=== PATIENT | male | born 1965 | race Caucasian/White ===

== ENCOUNTER 2021-06-23 04:36 | Inpatient (IN) | payer OTHER, SELFPAY ==
[2021-06-23] VITALS (108 sets, daily range): BP systolic 101–175; BP diastolic 59–116; PULSE 55–99; RESP 5–21; TEMP 35.7–36.6; O2SAT 66–98; BMI 32.5; BMI 35.0
--- NOTE | 2021-06-23 04:44 | ECG_ITS ---
[facility] Test Date: 2021-06-23 Pat Name: Marcel Guevara Department: Room: 105 Gender: Male Roll Examiner: : 1965 Requested By: Len Hardy Order Number: [id number] Meghna MD: JÚNIOR GUDINO Measurements Intervals [place] Rate: 64 P: 3 MS: 201 QRS: -34 QRSD: 149 T: -6 QT: 458 QTc: 475 Interpretive Statements SINUS RHYTHM LEFT AXIS DEVIATION [QRS AXIS < -30] RIGHT BUNDLE BRANCH BLOCK [120+ ms QRS DURATION, UPRIGHT V1, 40+ ms S IN I/aVL/V4/V5/V6] Compared to ECG 01/23/2018 18:21:37 Sinus bradycardia no longer present Electronically Signed On 06-23-2021 21:04:30 CDT by JÚNIOR GUDINO [id number]
--- NOTE | 2021-06-23 04:44 | XRR_ITS ---
PROCEDURE INFORMATION: Exam: XR Chest Exam date and time: 06/23/2021 4:44 AM Age: 56 years old Clinical indication: Shortness of breath; Angina pectoris; Prior surgery; Surgery date: Post-operative (0-2 days); Patient HX: S/P cath this am, SOB chest pain today; Additional info: Cp TECHNIQUE: Imaging protocol: XR of the chest. Views: 1 view. COMPARISON: CR Chest 1 [place] [id number] 01/23/2018 12:26 PM FINDINGS: Lungs: No focal consolidation. Pleural spaces: Unremarkable. No pleural effusion. No pneumothorax. Heart/Mediastinum: Unremarkable. No cardiomegaly. Bones/joints: Unremarkable. XR/XR chest 1V portable [id number] IMPRESSION: No focal consolidation. Question subtle interstitial prominence. Consider CT if indicated.
--- NOTE | 2021-06-23 04:46 | XACV_ITS ---
Exam Room: [facility] Ht: 191 cm Wt: 118 kg BSA: 2.53 m2 Gender: Male : 1965 Any Known Allergies: No known allergies Exam Priority: Routine Procedure(s): Procedure Description: Diagnostic procedure Procedure Description: PCI procedure Procedure Description: Drug Eluting Coronary Stent Procedure Description: Miscellaneous Procedure Description: ACT Procedure Description: Coronary Angiography Diagnostic Cath Status: Emergency Diagnostic Findings * Left Main has no disease. * Circumflex has no disease. * Proximal Left Anterior Descending to Mid Left Anterior Descending: total occlusion, CHERELLE: 0 flow. * Mid Right Coronary Artery: moderate 50% stenosis, CHERELLE: 3 flow. * Coronary angiography shows right dominance. PCI Status: Urgent PCI Indication: STEMI - Immediate PCI for STEMI Interventional Findings * Proximal Left Anterior Descending to Mid Left Anterior Descendin% stenosis treated with a AB TREK 2.50X12 RX BALLOON, MDKeanu Gray LANCE 3.0X26 MARIA ANTONIA, and MDT HIRA EUPHORA RX 3.20G00OV BALLOON. 0% residual stenosis, CHERELLE: 3 flow. Conclusions 1. There is total occlusion coronary artery disease with two vessel disease. 2. Proximal Left Anterior Descending to Mid Left Anterior Descending was treated with a Balloon, Drug Eluting Stent, and Balloon. Recommendations * 1-Return to inpatient for close monitoring and routine cath care 2-Risk factor modification for secondary prevention 3-Statin and aspirin 81 mg life--long, if tolerated 4-Patient was pre-loaded with 600 mg of Plavix, continue Plavix 75mg p.o. daily for at least one year. We will assess at the end of one year again to continue if further or not 5-Continue optimal medical management 6-Follow up with Dr. Oconnor in four weeks and your primary care in 10 days. Diagnostic RX Recommendation: PCI w/o planned CABG Pressures Phase:Rest AO : 101 / 50 ( 74 ) @ 1:12:20 AM 131 / 84 ( 108 ) @ 1:12:20 AM Clinical Evaluation EBL: 5mL-10mL Procedural Details Pre-Procedure Time Out. Identified patient by full name and date of as verbalized by the patient/guarantor. Does the consent match the physician's order: Yes. Accurate & Complete Informed Consent: Yes. Inpatient/Outpatient History & Physical on Chart: N/A Emergent. If H&P is completed, is and addenduem needed: No; If yes, is the addendum complete: N/A. Visualize and Verify Site with Patient/Guarantor: N/A. Relevant Radiology Images available: N/A Emergent. Pre-op teaching completed and patient verbalized understanding. The risks, benefits, and alternatives of sedation and/or procedure were discussed by physician. The patient agrees to continue. Procedure started. [facility] Clinical Fraility Score: 3: Managing Well. Carding Supervisor Indications: Other; STEMI. Chest Pain Symptom Assessment: Typical Angina Symptoms. Cardiovascular Instability: No. Correct patient, site and procedure confirmed by cath team. Current diagnosis: STEMI. PERRLA. Strong, equal hand environmental engineering manager bilaterally. Lungs clear x 5 lobes. IV Site on Arrival: 18 gauge in the left wrist. IV Fluids: 0.9% NaCl at KVO. 100 mL infused prior to cook house laborer. Pre Procedural Pulses: bilateral radial was 3+. Pre Procedural Pulses: bilateral posterior tibial was 3+. Pre Procedural Pulses: bilateral dorsalis pedis was 3+. Oxygen started at 3liters/min via nasal canula. right groin was prepped with chloroprep then draped in the usual sterile fashion. right radial was prepped with chloroprep then draped in the usual sterile fashion. Physician notified. Baseline sample Acquired. HR: 114 BPM. Baseline sample Acquired. HR: 101 BPM. Physician arrived. Physician scrubbed in. Equipment: 5F - Femoral. Equipment: 6F - Radial. Equipment: 6F - Femoral. Equipment: 5F - Radial. Immediate Pre-Procedure Time Out. Correct Patient: Yes; Correct Procedure: Yes; Correct Site: Yes; Correct Patient Position: Yes; Correct Supplies: Yes; Dried Flammable Prep: Yes; Blood Products Available: N/A;. Lidocaine 1% infiltrated to the right radial. Arterial access obtained. A Inherited Healthum[employer] 5 Fr Abelino Radial Catheter, 110cm was advanced over the wire and used for Right coronary angiography. Multiple views taken of right coronary artery. Catheter removed over the exchange wire. Inventory is CRD 6 FR XB 3.5 GUIDE. Heparin 4,000 units and plavix 300 mg PO was given in ER prior to cook house laborer arrival. 6 welsh XB 3.5 guide catheter was inserted over the wire. Current Diagnosis : STEMI. Inventory is Cingulate Therapeuticsgar XT .014 190cm Str. Guidewire. Guide seated in the LCS. Multiple views taken of left coronary artery. [place] guidewire was advanced through the guide catheter to lesion in the prox LAD. Guidewire advanced across lesion. Cardiac Cath Pack. ACIST Manifold Kit Model BT 2000. Heparinized Saline (2 units/mL), 1000 mL bag. Inflation number : 1 A AB TREK 2.50X12 RX BALLOON was prepped and advanced across the Prox LAD , then inflated to 14 ROQUE for 0:11 seconds. Inflation number: 2 The AB TREK 2.50X12 RX BALLOON was reinflated across the Prox LAD, to 14 ROQUE for 0:09 seconds. Inflation number: 3 The AB TREK 2.50X12 RX BALLOON was reinflated across the Prox LAD, to 14 ROQUE for 0:09 seconds. Angiography performed. Balloon out over the wire. Inflation Number : 4 A DO Gray LANCE 3.0X26 MARIA ANTONIA -Lot Number# [id number] was prepped and advanced across the Prox LAD. The stent was deployed at 16 ROQUE for 0:32 seconds. EXP 11-12-2022. Angiography performed. Stent balloon out over wire. Inflation number : 5 A MDT HIRA EUPHORA RX 3.35T87EZ BALLOON was prepped and advanced across the Prox LAD , then inflated to 16 ROQUE for 0:19 seconds. Inflation number: 6 The MDT HIRA EUPHORA RX 3.83L80HP BALLOON was reinflated across the Prox LAD, to 16 ROQUE for 0:16 seconds. Inflation number: 7 The MDT NC EUPHORA RX 3.15W95VC BALLOON was reinflated across the Prox LAD, to 10 ROQUE for 0:11 seconds. Inflation number: 8 The MDT NC EUPHORA RX 3.38S21DV BALLOON was reinflated across the Prox LAD, to 10 ROQUE for 0:08 seconds. Inflation number: 9 The MDT NC EUPHORA RX 3.56W83OG BALLOON was reinflated across the Prox LAD, to 10 ROQUE for 0:07 seconds. Angiography performed. Inflation number: 10 The MDT NC EUPHORA RX 3.54C02OW BALLOON was reinflated across the Prox LAD, to 12 ROQUE for 0:09 seconds. Angiography performed. Balloon and wire out. Angiography performed. ACT drawn. Results 216 seconds. Therapeutic limits - pre-heparin administration 90-150 seconds and monitoring heparin during a vascular procedure >250 seconds. Physician review of films. Physician scrubbed out. A TR Band was successful obtaining hemostatsis at the Right Radial artery insertion site. TR band placed. Hemostasis obtained. Post Procedure: Pulses reassessed and unchanged. PERRLA. Strong, equal hand environmental engineering manager bilaterally. No VTE prophylaxis required. Medication's Wasted: Lidocaine 1% = 16 ml. Medication's Wasted: Heparin = 2000 units. Medication's Wasted: Fentanyl = 25 mcg. Medication's Wasted: Versed = 1 mg. Medication's Wasted: Nitro = 50 mg. Total IV fluids: 100 mL. Fluoro: 12:03. Contrast type used: Omnipaque 300 mgI/mL, 500 mL bottle. Vital chart was stopped. [id number]. PCI Indication: STEMI. Post-op diagnosis: STEMI; LAD OCCLUSION. Complications: NONE. Estimated blood loss: 5mL-10mL. Procedure completed. Patient transferred by wheelchair to 1st floor. Access Site Site: Right Radial artery Sheath Size: 6 Fr Hemostasis Method: TR Band Hemostasis Success: Successful Procedure Medications Start: 5:12 AM Stop: 5:12 AM Medication: Versed 1 mg and Fentanyl 25 mcg Amount: 1 Route: I.V. Start: 5:14 AM Stop: 5:14 AM Medication: Fentanyl Amount: 25 mcg Route: I.V. Start: 5:15 AM Stop: 5:15 AM Medication: Versed Amount: 1 mg Route: I.V. Start: 5:17 AM Stop: 5:17 AM Medication: Plavix Amount: 300 mg Route: P.O. Start: 5:17 AM Stop: 5:17 AM Medication: Fentanyl Amount: 50 mcg Route: I.V. Start: 5:24 AM Stop: 5:24 AM Medication: Versed Amount: 1 mg Route: I.V. Start: 5:31 AM Stop: 5:31 AM Medication: Fentanyl Amount: 50 mcg Route: I.V. Start: 5:32 AM Stop: 5:32 AM Medication: Heparin Amount: 7000 units Route: I.V. Start: 5:37 AM Stop: 5:37 AM Medication: Aggrastat 12.5 mg/250 mL Amount: 60 ml Route: I.V. bolus Start: 5:37 AM Stop: 5:37 AM Medication: Aggrastat 12.5 mg/250 mL Amount: 21.6 ml/hr Route: I.V. drip Start: 5:42 AM Stop: 5:42 AM Medication: Fentanyl Amount: 25 mcg Route: I.V. Start: 5:56 AM Stop: 5:56 AM Medication: Heparin Amount: 2000 units Route: I.V. I, the attending physician, have reviewed and verified all procedure medications. Yes, all medications given per verbal order History/Risk Factors Hypertension: Yes Dyslipidemia: Yes Peripheral Arterial Disease (PAD): No Myocardial Infarction (SD): Yes Obesity: Yes Renal Disease: No Tobacco Use: Current/Recent(w/in 1 year) Prior Interventions PCI: Yes CABG: No Valve Surgery: No Report Signatures Finalized by Paola Oconnor MD on 07/06/2021 08:12 PM
[2021-06-23] MEDS: clopidogrel 300 mg Tablet PO (04:51)
[2021-06-23] MEDS: heparin 5,000 unit/mL INJ 1 mL 4000 UNIT IVP (04:56)
[2021-06-23] MEDS: sodium chloride 0.9% 1,000 ML 999 ML IV (04:58)
[2021-06-23 05:08] LABS: Basophils # 0.1 10^3/uL (0.0-0.1); Basophils % 0.6 %; Eosinophils # 0.6 10^3/uL (0.0-0.8); Eosinophils % 3.6 %; Hematocrit 44.9 % (42.0-52.0); Hemoglobin 14.7 g/dL (11.7-16.6); Lymphocytes # 5.1 10^3/uL (0.8-4.8); Mean Corpuscular HGB Conc 32.7 g/dL (30.0-36.0); Mean Corpuscular Hemoglobin 29.1 pg (28.0-34.0); Mean Corpuscular Volume 88.7 fl (80-94); Monocytes % 6.1 %; Neutrophils # 9.03 10^3/uL (1.8-7.7); Neutrophils % 57.3 %; Nucleated Red Blood Cells % 0 %; Platelet Count 239 10^3/cmm (130-400); Red Blood Count 5.06 10^6/uL (4.1-5.3); Red Cell Distribution Width 14.7 % (12.1-15.1); White Blood Count 15.8 10^3/uL (4.0-10.0)
--- NOTE | 2021-06-23 05:08 | PM.HP ---
Providers/Chief Complaint Primary Care Provider: Marcel Fuentes MD Chief Complaint: STEMI ALERT History of Present Illness Marcel Guevara is a 56 year old male past medical history significant of hypertension hyperlipidemia obesity, continuous tobacco abuse who does not follow with strategic intelligence officer started having chest pain early this morning almost 45 minutes ago called 911, on the basis of EMS strip with mild ST elevation in the anterolateral/high lateral leads I aVL ST elevation NM was alerted. Patient has underlying right bundle branch block therefore it is difficult to interpret, however this EKG is changed from the prior ones, Since patient continues to have chest pain with mild ST elevation in the anterolateral leads we will take him to the Baling Machine Operator. Patient has been explained all risk benefit and alternative for the procedure. He understand the risk for major minor bleed, urgent emergent bypass and vascular surgery, stroke, , arrhythmia and infection. He understand the risk for contrast-induced nephropathy, radial artery or femoral artery occlusion or injury. He would like to proceed with it. He was loaded with 600 mg of Plavix. Medications/Allergies Home Medications Medication Instructions Recorded Confirmed Last Taken Type amlodipine 10 mg PO DAILY 06/23/21 06/23/21 06/22/21 History aspirin 325 mg PO ONCE MDD see pharmacy 06/23/21 06/23/21 06/23/21 History comment 325 mg atorvastatin 20 mg PO DAILY 06/23/21 06/23/21 06/22/21 History lisinopril 40 mg PO DAILY 06/23/21 06/23/21 06/22/21 History metoprolol succinate 50 mg PO DAILY 06/23/21 06/23/21 06/22/21 History sildenafil (pulm.hypertension) 40 - 60 mg PO .PRIOR TO SEXUAL ACT 06/23/21 06/23/21 Unknown History PRN Allergies Allergy/AdvReac Type Severity Reaction Status Date / Time No Known Allergies Allergy Verified 06/23/21 05:17 PFSH Acute PFSH: Medical History (Updated 06/23/21 @ 20:11 by Paola Oconnor MD) Essential hypertension Vitals/I&O/Wt Last Vital Signs Pulse 63 06/23/21 04:38 Resp 13 06/23/21 04:38 BP 101/59 06/23/21 04:38 Pulse Ox 89 L 06/23/21 04:38 Weight last 48 hrs Weight 260 lb Physical Exam Narrative: EXAM NARRATIVE: GENERAL: Patient is alert, awake and oriented x3. Patient is in severe chest pain and discomfort NECK: No jugular vein distension. HEENT: No cyanosis. No icterus. No pallor. HEART: Regular S1 and S2. No murmur, rub or gallop. LUNGS: Clear to auscultate bilaterally. ABDOMEN: Soft, nontender and nondistended. Positive bowel sounds. No guarding, rebound or tenderness. CENTRAL NERVOUS SYSTEM: Grossly nonfocal. EXTREMITIES: Lower extremities without edema bilaterally. Data : 06/23/21 04:55 06/23/21 04:55 A&P Assessment and plan (1) ST elevation NM (STEMI): Patient's anterolateral and high lateral leads are suspicious for ST elevation NM we will proceed with urgent angiogram and PCI if indicated. Further plan will be advised as per progress of the patient. Status: Acute (2) Essential hypertension: Well-controlled. Continue current regimen. Status: Acute Attestations Medical Necessity Statement*: Patient will be admitted as inpatient for ST elevation NM. I am expecting his stay to cross more than 2 midnights. Coding Level of Care Code New Pt Acute Test Case Developer for g Fwd Patient Type New History Detailed Exam Detailed Medical Decision Making Moderate Complexity Diagnoses ST elevation NM (STEMI) I21.3 Essential hypertension I10
--- NOTE | 2021-06-23 05:14 | W.ED.CHESTPA ---
HPI - Chest Pain General: Chief Complaint: Chest Pain Stated Complaint: STEMI ALERT Time Seen by Provider: 06/23/21 04:43 Source: patient and EMS Mode of arrival: EMS Limitations: no limitations History of Present Illness: HPI narrative: 56-year-old male that states he started having chest pain roughly 1 hour before arrival. A STEMI alert was called by EMS 30 minutes out [place] due to elevation in V2 V3. Patient states that he was diaphoretic pain felt like he had when he had a previous OR. Patient was given nitro and morphine with improvement of his pain. Patient received aspirin as well. He denies any vomiting or diarrhea. Associated symptoms: Deny abdominal pain, dyspnea, fever(s), nausea or vomiting Review of Systems Const: Denies: fever(s), chills, body aches or change in appetite Eyes: Denies: blurry vision or eye discomfort ENMT: Denies: throat pain or dental pain Card: Reports: chest pain Resp: Denies: dyspnea GI: Denies: abdominal pain, nausea, vomiting or diarrhea : Denies: dysuria Musc: Denies: neck pain or back pain Skin/Breast: Denies: rash Neuro: Denies: headache(s) Psych: Denies: depression Sridhar/Lymph: Denies: easy bruising All/Imm: Denies: urticaria Physical Exam Const: COMMON NORMALS: patient oriented x3 and healthy appearing GENERAL APPEARANCE: ill appearing NUTRITIONAL APPEARANCE: overweight HENMT: COMMON NORMALS: normocephalic and atraumatic HEAD & SCALP: normocephalic and atraumatic Eye: COMMON NORMALS: Equal, round and reactive pupils present and EOMs intact bilaterally PUPIL: Yes Equal, round and reactive pupils present Neck/C-Spine: COMMON NORMALS: full ROM and supple Chest: COMMONS NORMALS: normal inspection of the chest and normal palpation of entire chest wall Resp: COMMON NORMALS: normal respiratory effort, No retractions, No use of accessory muscles and clear to auscultation bilaterally AUSCULTATION: clear to auscultation bilaterally Cardio: COMMON NORMALS: regular rate, regular rhythm and No murmurs present (Cardio) RATE: regular rate RHYTHM: regular rhythm GI: COMMON NORMALS: Normal to inspection, nondistended, normoactive bowel sounds present, Soft to palpation, non-tender and no masses PALPATION: Yes Soft to palpation Extremity: COMMON NORMALS: normal to inspection and full ROM Neuro: COMMON NORMALS: patient oriented x3, moves all extremities and no focal motor deficits Psych: COMMON NORMALS: mental status grossly normal, Normal thought process present and cooperative THOUGHT PROCESS: Normal thought process present Skin: COMMON NORMALS: no rashes or lesions noted and no wounds GENERAL SKIN EXAM: no rashes or lesions noted Course Vital Signs: Vital signs: Vital Signs Temperature 97.9 F 06/23/21 04:45 Pulse Rate 62 06/23/21 04:45 Respiratory Rate 20 H 06/23/21 04:45 Blood Pressure 101/59 06/23/21 04:45 Pulse Oximetry 88 L 06/23/21 04:45 MDM - Chest Pain MDM Narrative: Medical decision making narrative: Presents here with chest pain and a likely STEMI. He does have some elevation in V2 Dr. Noel's came and seen the patient will take patient to the Offset Plate Preparation Supervisor at this time. Patient's pain has improved with nitro and morphine in route by EMS. He is given aspirin. Lab Data: Labs: Lab Results 06/23/21 Range/Units 04:55 WBC 15.8 H (4.0-10.0) 10^3/ uL RBC 5.06 (4.1-5.3) 10^6/u L Hgb 14.7 (11.7-16.6) g/dL Hct 44.9 (42.0-52.0) % MCV 88.7 (80-94) fl MCH 29.1 (28.0-34.0) pg MCHC 32.7 (30.0-36.0) g/dL RDW 14.7 (12.1-15.1) % Plt Count 239 (130-400) 10^3/c mm MPV 10.0 (7.4-10.4) fL Neut % (Auto) 57.3 % Lymph % (Auto) 32.0 % [place] % (Auto) 6.1 % Eos % (Auto) 3.6 % Baso % (Auto) 0.6 % Neut # (Auto) 9.03 H (1.8-7.7) 10^3/u L Lymph # (Auto) 5.1 H (0.8-4.8) 10^3/u L [place] # (Auto) 1.0 H (0.2-0.9) 10^3/u L Eos # (Auto) 0.6 (0.0-0.8) 10^3/u L Baso # (Auto) 0.1 (0.0-0.1) 10^3/u L Nucleated RBC % (a uto) 0 % Nucleated RBCs # 0.0 /100WBC Discharge Plan Discharge Patient Disposition: Admitted As Inpatient Clinical Impression: ST elevation OR (STEMI) Referrals: Marcel Fuentes MD [Primary Care Provider] - Coding Level of Care Code ED Rn Review for Kristyn Guillen
[2021-06-23 05:23] LABS: Alanine Aminotransferase 16 U/L (0-41); Albumin Level 3.6 g/dL (3.5-5.2); Alkaline Phosphatase 63 IU/L (40-130); Blood Urea Nitrogen 11 mg/dL (6-20); Calcium 8.8 mg/dL (8.5-10.5); Carbon Dioxide 23 mmol/L (22-29); Chloride 99 mmol/L (98-107); Globulin 2.6 g/dL (1.3-4.6); Glucose 194 mg/dL (65-115); Osmolality Calculated 287 mOsm/kg (285-295); Sodium 136 mmol/L (136-145); Total Bilirubin 0.3 mg/dL (0.15-1.2); Total Protein 6.2 g/dL (6.6-8.7); Troponin(5th) Baseline 20 ng/L (0-15)
[2021-06-23 05:33] LABS: Anion Gap 18.7 (5-19); Aspartate Amino Transferase 19 U/L (0-40); Potassium 4.7 mmol/L (3.5-5.1)
--- NOTE | 2021-06-23 06:19 | PC.NURSE ---
Patient asked me to call , Erinn to update her. She did not answer phone. .
--- NOTE | 2021-06-23 07:16 | PC.NURSE ---
Around 0600, patient arrived to the floor from slabbing machine operator. Patient is alert and oriented, but drowsy. Patient is on 2 L NC. VSS. TR band to right wrist and aggrastat drip running per order. Patient has been oriented to his room and has call light within reach.
--- NOTE | 2021-06-23 08:30 | PC.CHAP ---
Pastoral Care Encounter/Spiritual Assessment Type of Contact [] Declined geometry teacher visit [] Patient/Family/Request visit [] Outpatient visit [] Follow-up visit [] Physician referral [] Code/Alert [x] Routine visit [] Staff referral [] Actively dying [] Patient sleeping [] Family support [] [] Out of room [] Palliative care [] [] Receiving care in room [] Pre-surgical visit [] Trauma [] Long length of stay [] ICU visit [] Other: Relational/Emotional Strength [] Patient feels connected with others/family/visitors/staff [] Distress [] Loneliness/isolation [] Abandonment Spirituality of Patient [] Person of April [] Attends Restorationist of their April [] Believes in Prayer [] Reads Bible or Sikhism materials [] There are Spiritual issues to be addressed Resident Programs Assistant Interventions [x] Prayer [] Active listening [] Non-anxious presence [] Spiritual/emotional support [] Crisis/trauma care [] Spiritual counseling [] Bereavement support [] Provided bereavement packet [] Provided Bible/devotional materials [] Provided toy/stuffed animal, coloring book to patient or family member [] Provided Communion [] Anointing/[place] [] Salvation [x] Completed spiritual assessment [] Other: Impact on Illness or Injury [] Angry [] Fearful [] Anxious [] Often cries [] Exhaustion [] Unable to work [] Unable to attend rastafarian [] Unable to walk/stand [] Unable to read [] Unable to drive [] Unable to eat/drink [] Unable to sleep [] Unable to be with family [] Patient intubated [] Other: Summary Time spent with patient
--- NOTE | 2021-06-23 10:36 | ECG_ITS ---
[facility] Test Date: 2021-06-23 Pat Name: Marcel Guevara Department: Room: 105 Gender: Male Family Program Specialist: : 1965 Requested By: Paola Oconnor Order Number: [id number] Reading MD: PAOLA OCONNOR Measurements Intervals [place] Rate: 56 P: -8 [place]: 199 QRS: -22 QRSD: 150 T: 1 QT: 446 QTc: 431 Interpretive Statements SINUS BRADYCARDIA BORDERLINE LEFT AXIS DEVIATION [QRS AXIS < -20] RIGHT BUNDLE BRANCH BLOCK [120+ ms QRS DURATION, UPRIGHT V1, 40+ ms S IN I/aVL/V4/V5/V6] Compared to ECG 06/23/2021 04:40:43 Sinus rhythm no longer present Electronically Signed On 06-23-2021 21:04:09 CDT by PAOLA OCONNOR [id number]
--- NOTE | 2021-06-23 12:30 | PC.NURSE ---
TR Band removed. no hematoma, swelling or bleeding noted at site. Pt tolerated well. Will cont to monitor.
[2021-06-23] MEDS: atorvastatin 40 mg Tablet 80 MG PO (19:34)
--- NOTE | 2021-06-23 20:53 | PC.NURSE ---
Patient's right wrist site/dressing WNL. Distal pulses and skin WNL. Vital signs stable.
--- NOTE | 2021-06-23 21:36 | PC.NURSE ---
Dr. Harrell notified of patient's oxygen saturation dropping to 50 percent while sleeping. Patient maintained this until being awoke. Patient did this x3 when falling asleep. RT notified and assessed patient. Dr. Harrell ordered CPAP. Patient states that he does not have a history of sleep apnea and does not wear any oxygen at home.
--- NOTE | 2021-06-23 22:05 | PC.NURSE ---
Patient unable to tolerate CPAP. Patient is currently on 2 L NC with continuous pulse ox on. Oxygen saturation is currently 96 percent while awake. Will continue to monitor.
[2021-06-24] VITALS (7 sets, daily range): BP systolic 109–147; BP diastolic 66–99; PULSE 63–85; RESP 12–16; TEMP 36.6–36.8; O2SAT 93–98
[2021-06-24 04:47] LABS: Basophils # 0.1 10^3/uL (0.0-0.1); Basophils % 0.4 %; Eosinophils # 0.2 10^3/uL (0.0-0.8); Eosinophils % 1.7 %; Hematocrit 47.4 % (42.0-52.0); Hemoglobin 15.3 g/dL (11.7-16.6); Lymphocytes # 2.4 10^3/uL (0.8-4.8); Lymphocytes % 20.2 %; Mean Corpuscular HGB Conc 32.3 g/dL (30.0-36.0); Mean Corpuscular Hemoglobin 28.9 pg (28.0-34.0); Mean Corpuscular Volume 89.4 fl (80-94); Mean Platelet Volume 9.6 fL (7.4-10.4); Monocytes # 0.8 10^3/uL (0.2-0.9); Monocytes % 6.9 %; Neutrophils % 70.5 %; Nucleated Red Blood Cells % 0 %; Platelet Count 217 10^3/cmm (130-400); Red Cell Distribution Width 14.9 % (12.1-15.1); White Blood Count 11.9 10^3/uL (4.0-10.0)
[2021-06-24 04:59] LABS: Anion Gap 12.4 (5-19); Blood Urea Nitrogen 8 mg/dL (6-20); Calcium 8.5 mg/dL (8.5-10.5); Carbon Dioxide 27 mmol/L (22-29); Chloride 99 mmol/L (98-107); Glomerular Filtration Rate 138.9 mL/min (90-130); Glucose 128 mg/dL (65-115); Osmolality Calculated 278 mOsm/kg (285-295); Potassium 4.4 mmol/L (3.5-5.1); Sodium 134 mmol/L (136-145)
[2021-06-24 05:54] LABS: Troponin T (5th) Once 948 ng/L (0-15)
--- NOTE | 2021-06-24 06:08 | PC.NURSE ---
Shift Note Frequent safety and comfort rounds continue. Orders and/or nursing care completed as indicated. Patient monitored for response to intervention and treatment(s). Education provided includes post-cath activity restrictions and care. Patient and/or pharmaceutical sales representative verbalized understanding. Will continue to monitor.
--- NOTE | 2021-06-24 08:41 | PC.CHAP ---
Pastoral Care Encounter/Spiritual Assessment Type of Contact [] Declined air conditioning coil assembler visit [] Patient/Family/Request visit [] Outpatient visit [] Follow-up visit [] Physician referral [] Code/Alert [x] Routine visit [] Staff referral [] Actively dying [] Patient sleeping [] Family support [] [] Out of room [] Palliative care [] [] Receiving care in room [] Pre-surgical visit [] Trauma [] Long length of stay [] ICU visit [] Other: Relational/Emotional Strength [] Patient feels connected with others/family/visitors/staff [] Distress [] Loneliness/isolation [] Abandonment Spirituality of Patient [] Person of April [] Attends Scientology of their April [] Believes in Prayer [] Reads Bible or Moravian materials [] There are Spiritual issues to be addressed Signal Person Interventions [x] Prayer [] Active listening [] Non-anxious presence [] Spiritual/emotional support [] Crisis/trauma care [] Spiritual counseling [] Bereavement support [] Provided bereavement packet [] Provided Bible/devotional materials [] Provided toy/stuffed animal, coloring book to patient or family member [] Provided Communion [] Anointing/[place] [] Salvation [x] Completed spiritual assessment [] Other: Impact on Illness or Injury [] Angry [] Fearful [] Anxious [] Often cries [] Exhaustion [] Unable to work [] Unable to attend religion [] Unable to walk/stand [] Unable to read [] Unable to drive [] Unable to eat/drink [] Unable to sleep [] Unable to be with family [] Patient intubated [] Other: Summary Time spent with patient
[2021-06-24] MEDS: metoprolol succinate ER (24 HR) 50 mg Tablet PO (09:18)
[2021-06-24] MEDS: aspirin 81 mg EC Tablet PO (09:18)
[2021-06-24] MEDS: clopidogrel 75 mg Tablet PO (09:18)
[2021-06-24] MEDS: lisinopril 20 mg Tablet 40 MG PO (09:19)
--- NOTE | 2021-06-24 10:38 | USCV_ITS ---
Marcel Guevara Age: 56 Gender: M : 1965 Exam Date: 06/24/2021 12:02 Ordering Phys: Paola Oconnor MD ([email or web address]) Technologist: Exam Location: [facility] [place] Indication: POST CATH BP: 147 / 99 HR: 98 Rhythm: Sinus Technical Quality: Adequate MEASUREMENTS (Male / Female) Normal Values 2D ECHO LV Diastolic Diameter PLAX 5.8 cm 4.2 - 5.9 / 3.9 - 5.3 cm LV Systolic Diameter PLAX 4.0 cm IVS Diastolic Thickness 0.8 cm 0.6 - 1.0 / 0.6 - 0.9 cm IVS Systolic Thickness 1.6 cm LVPW Diastolic Thickness 1.2 cm 0.6 - 1.0 / 0.6 - 0.9 cm LVPW Systolic Thickness 1.5 cm LVOT Diameter 2.1 cm LV Ejection Fraction 2D Teich 57.7 % LV Ejection Fraction MOD 2C 58.3 % LV Ejection Fraction 2C AL 57.6 % LA Diameter 4.3 cm DOPPLER AV Peak Velocity 131.0 cm/s LVOT Peak Velocity 99.0 cm/s AV Area Cont Eq vti 3.0 cm squared AV Area Cont Eq pk 2.6 cm squared MV Area PHT 5.0 cm squared Mitral E to A Ratio 0.9 MV E' Velocity 39.5 cm/s Mitral E to MV E' Ratio 9.8 Mitral E to LV E' Lateral Ratio 8.8 Mitral E to LV E' Septal Ratio 11.2 TR Peak Velocity 127.7 cm/s TR Peak Gradient 6.5 mmHg TV Peak E Velocity 87.0 cm/s Right Atrial Pressure 3.0 mmHg Pulmonary Artery Systolic Pressu 9.5 mmHg FINDINGS Left Ventricle Normal left ventricular cavity size.normal left ventricular systolic function. Left ventricular ejection fraction is estimated at 55 %. There appeared to be septal bounce could be secondary to CAD or conduction delay or postoperative state.Grade I/IV diastolic dysfunction (abnormal relaxation filling pattern), normal to mildly elevated filling pressures. Right Ventricle The right ventricle is normal in size and function. Right Atrium The right atrium is normal in size. Left Atrium The left atrium is normal in size. Mitral Valve Moderately thickened mitral valve. No mitral valve stenosis. Mild mitral valve regurgitation. Aortic Valve Structurally normal aortic valve without significant sclerosis or stenosis. There is no aortic regurgitation. Tricuspid Valve Structurally normal tricuspid valve without significant stenosis or regurgitation. Pulmonary artery systolic pressure is normal. Pulmonic Valve Structurally normal pulmonic valve without significant stenosis. There is no pulmonic regurgitation. Pericardium Normal pericardium without effusion. Aorta Normal ascending aorta dimension. CONCLUSIONS Normal left ventricular cavity size.normal left ventricular systolic function. Left ventricular ejection fraction is estimated at 55 %. There appeared to be septal bounce could be secondary to CAD or conduction delay or postoperative state.Grade I/IV diastolic dysfunction (abnormal relaxation filling pattern), normal to mildly elevated filling pressures. 2-Moderately thickened mitral valve. No mitral valve stenosis. Mild mitral valve regurgitation. 4-There is no pericardial effusion. 5-Pulmonary artery systolic pressure is within normal limits. 6-Right atrial pressure is around 5 mm of mercury. 7-There are no prior echocardiogram studies to compare. Paola Oconnor MD (Electronically Signed) Final Date: 24 June 2021 19:24 S
[2021-06-24] MEDS: perflutren protein-a microsphr 0.22 mg/mL SDV 3 mL IV (12:10)
--- NOTE | 2021-06-24 14:01 | PM.DCS ---
Discharge Providers Date of Admission: 06/23/21 06:01 Date of Discharge: June 24, 2021 Attending Provider at Admission: Paola Oconnor MD Attending Provider at Discharge: Paola Oconnor MD Primary Care Provider: Marcel Fuentes MD Diagnoses at Discharge Discharge Diagnosis (1) ST elevation GA (STEMI): Status: Resolved (2) Essential hypertension: Reason for Visit Reason for Visit: STEMI ALERT Hospital Course Hospital Course 56-year-old male past medical history significant for hypertension hyperlipidemia chewing tobacco going on for at least 30 years presented with chest pain of 45 minutes duration he was taken immediately to [facility] due to ST elevation. Noted to have acute eluded mid LAD which was treated with balloon angioplasty and drug-eluting stent with excellent angiographic result achieved. Over next 2 days patient medicine was optimized. No complication noted. He is moving around fine without any difficulty. Labs looks good he is feeling much better. He is being discharged home left ventricle ejection fraction by echo was normal. Troponin peaked at > 900 before discharge. Physical Exam Narrative: EXAM NARRATIVE: GENERAL: Patient is alert, awake and oriented x3. NECK: No jugular vein distension. HEENT: No cyanosis. No icterus. No pallor. HEART: Regular S1 and S2. No murmur, rub or gallop. LUNGS: Clear to auscultate bilaterally. ABDOMEN: Soft, nontender and nondistended. Positive bowel sounds. No guarding, rebound or tenderness. CENTRAL NERVOUS SYSTEM: Grossly nonfocal. EXTREMITIES: Lower extremities without edema bilaterally. Discharge Data Data Completed and Pending: Completed Studies During Hospitalization Category Date Time Status XR chest 1V varun ble [id number] Urgent Exams 06/23/21 04:44 Completed Pending at discharge Category Date Time Status [employer]ER request for service Stat Exams 06/23/21 04:46 Taken CV. echo wo/w con trast [id number] Routin e Ultrasound 06/24/21 10:38 Taken Labs from last 24 hours 06/24/21 06/24/21 06/24/21 04:31 04:31 04:31 WBC 11.9 H RBC 5.30 Hgb 15.3 Hct 47.4 MCV 89.4 MCH 28.9 MCHC 32.3 RDW 14.9 Plt Count 217 MPV 9.6 Neut % (Auto) 70.5 Lymph % (Auto) 20.2 [place] % (Auto) 6.9 Eos % (Auto) 1.7 Baso % (Auto) 0.4 Neut # (Auto) 8.40 H Lymph # (Auto) 2.4 [place] # (Auto) 0.8 Eos # (Auto) 0.2 Baso # (Auto) 0.1 Nucleated RBC % (a uto) 0 Nucleated RBCs # 0.0 Sodium 134 L Potassium 4.4 Chloride 99 Carbon Dioxide 27 Anion Gap 12.4 BUN 8 Creatinine 0.6 L GFR Calculation 138.9 H Glucose 128 H Calculated Osmolal ity 278 L Calcium 8.5 Troponin T Gen 5 n g/L 948 H* Vitals: Last Vital Signs Temp 97.8 F 06/24/21 12:00 Pulse 63 06/24/21 12:00 Resp 16 06/24/21 12:00 BP 109/66 06/24/21 12:00 Pulse Ox 94 06/24/21 12:00 Discharge Plan Discharge Patient Disposition: Home Condition: Stable Prescriptions: New clopidogrel 75 mg Tablet 75 mg PO DAILY Qty: 90 RF: 4 Lasix 20 mg tablet 20 mg PO QAM Qty: 60 RF: 3 potassium chloride 20 mEq tablet extended release 10 meq PO DAILY Qty: 30 RF: 3 Continued metoprolol succinate 50 mg tablet extended release 24 hr 50 mg PO DAILY RF: 0 lisinopril 20 mg tablet 40 mg PO DAILY Qty: 30 RF: 3 Changed aspirin 325 mg Tablet 81 mg PO ONCE MDD see pharmacy comment Qty: 90 RF: 3 atorvastatin 20 mg tablet 80 mg PO DAILY Qty: 30 RF: 3 Discontinued amlodipine 10 mg tablet 10 mg PO DAILY RF: 0 sildenafil (pulm.hypertension) 20 mg tablet 40 - 60 mg PO .PRIOR TO SEXUAL ACT PRN (Reason: Erectile Dysfunction) RF: 0 Discharge Orders: Discharge Order (Routine); Ordered 06/24/21 Ordered By: Paola Oconnor Referrals: Paola Oconnor MD [Physician] - (You have a follow-up appointment with your pet trainer Dr. Oconnor on TuesdayJuly 22 at 3:45 pm. If you need to re-schedule this appointment please call them at [phone].) Chandni Will FNP [Nurse Practitioner] - (You have a follow-up appointment with Nurse Practitioner Chandni Will on July 02 at 9 am. If you need to re-schedule this appointment please call them at [phone].) Marcel Fuentes MD [Primary Care Provider] - 07/01/21 1:00 pm (Please follow-up with your primary doctor.) Discharge Diet: Cardiac Discharge Activity: Increase activity as tolerated Patient Instructions: Furosemide (By mouth), Potassium Chloride (By mouth), Clopidogrel (By mouth), Myocardial Infarction (DC), Left Heart Catheterization (DC), Coronary Angioplasty (DC), Coronary Intravascular Stent Placement (DC), Opioid Safety, Post Angiogram Home Care Instructions, Post Heart Attack Stoplight Activity Restrictions/Additional Instructions: Follow-up with Ms. Chandni Will in 7 days follow-up with Dr. Oconnor in 4 weeks. If you gain more than 3 pound in 2 conjunctive days or noticed worsening of shortness of breath or swelling of the feet please increase your Lasix dose to 40 mg once a day and potassium to 20 meq once a day. Discharge Attestations Time Spent in Discharge Care*: greater than 30 min Specific Discharge Activities: educating patient and educating and/or supporting family/caregiver Quality Metrics Clinical Quality Measures During this hospital stay, did patient experience: AMI Clinical Trial Participant: No Contraindication to aspirin (AMI): Aspirin given Contraindication to statin: Statin prescribed Coding Level of Care Code Acute [facility] note Diagnoses ST elevation GA (STEMI) I21.3 Essential hypertension I10
--- NOTE | 2021-06-24 16:45 | PC.NURSE ---
Pt discharged home IV removed no redness or swelling noted. Pts discharge instructions given along with prescriptions and follow up appointments. Pt had no c/o pain or discomfort at the time of discharge.
--- NOTE | 2021-06-25 10:46 | PC.SOCIAL ---
discharge follow up call made. patient had follow up appointments made with Chandni Will and Dr. Oconnor. Follow up appointment made with Dr. Fuentes. Patient filled all new medications and is taking as prescribed. Is aware of changed medications and discontinued meds.
== END 2021-06-24 16:43 | disposition home or self-care (01) | DRG 247 ==
LOC: ER 04:55 → CCL 05:46 → CSU 06:01
PROVIDERS: Admitting Provider Internal Medicine Cardiovascular Disease; Emergency Provider Emergency Medicine; PCP Family Medicine; Visit Provider Internal Medicine Cardiovascular Disease
PROC: 027034Z Dilation of Coronary Artery, One Artery with Drug-eluting Intraluminal Device, Percutaneous Approach (ICD-10-PCS; principal; 2021-06-23 04:30)
PROC: 027034Z Dilation of Coronary Artery, One Artery with Drug-eluting Intraluminal Device, Percutaneous Approach (ICD-10-PCS; 2021-06-23 04:30)
DX: I21.02 ST elevation (STEMI) myocardial infarction involving left anterior descending coronary artery (principal); I10 Essential (primary) hypertension; I25.118 Atherosclerotic heart disease of native coronary artery with other forms of angina pectoris; E78.5 Hyperlipidemia, unspecified; I45.10 Unspecified right bundle-branch block; Z72.0 Tobacco use
CPT/HCPCS: 36415; 71045; 80048; 80053; 84484; 85025; 85347; 93005; 93454; 96361; 96374; 99285; C1725; C1769; C1874; C1887; C1894; C8929; C9600; J1644; J2250; J3010; J3246; J3490; J7030; Q9956; Q9967

== ENCOUNTER → 2021-07-02 09:45 | Outpatient (BNVA) | payer OTHER, SELFPAY | PROVIDERS: PCP Family Medicine; Visit Provider Nurse Practitioner Family | DX: Z09 Encounter for follow-up examination after completed treatment for conditions other than malignant neoplasm (principal); I25.119 Atherosclerotic heart disease of native coronary artery with unspecified angina pectoris | CPT/HCPCS: 80048 ==

== ENCOUNTER → 2022-07-20 15:31 | Outpatient (BNVA) | payer OTHER, SELFPAY | PROVIDERS: PCP Family Medicine; Visit Provider Internal Medicine Cardiovascular Disease | DX: I10 Essential (primary) hypertension (principal); I25.119 Atherosclerotic heart disease of native coronary artery with unspecified angina pectoris | CPT/HCPCS: 80053; 80061; 83721; 85025 ==

== ENCOUNTER → 2023-08-19 12:06 | Outpatient (BNVA) | payer OTHER, SELFPAY | PROVIDERS: PCP Family Medicine; Visit Provider Internal Medicine Cardiovascular Disease | DX: E78.5 Hyperlipidemia, unspecified (principal); I10 Essential (primary) hypertension; I25.10 Atherosclerotic heart disease of native coronary artery without angina pectoris; I25.119 Atherosclerotic heart disease of native coronary artery with unspecified angina pectoris; Z72.0 Tobacco use | CPT/HCPCS: 36415; 80053; 80061; 85025 ==

== ENCOUNTER 2023-10-28 16:26 | Emergency (ER) | payer SELFPAY ==
[2023-10-28 16:36] VITALS: BP 133/88; PULSE 88; RESP 14; TEMP 36.3; O2SAT 93
[2023-10-28 16:39] LABS: Glucose Point of Care 573 mg/dL (70-110)
[2023-10-28 16:57] LABS: ABG PCO2 40.4 mmHg (35-45); Alveolar-Arterial Oxygen Gradi 3.4 mmHg (5-10); Base Excess ABG -0.1 mmol/L (-2.0-2.0); Blood Gas Operator Identificat AMH; Blood Gas Sample Site Brachial, right; Blood Gas Sample Type Arterial; Carboxyhemoglobin 5.4 %THgb (0.4-20.1); HCO3 ABG 24.8 mmol/L (22-26); HGB O2 Sat 89.8 % (95-100); Ionized Calcium Level - ABG 1.2 mmol/L (1.1-1.4); Methemoglobin 0.7 % (0.4-1.5); Oxygen Device ROOM AIR; Oxygen Saturation ABG 95.7; PO2 ABG 72.3 mmHg (80.0-100.0); PO2 FiO2 Ratio Arterial Blood 0; Potassium Level - ABG 4.3 mmol/L (3.5-5.0); Total Hemoglobin 15.7 g/dL (14-18)
[2023-10-28 18:06] LABS: Basophils # 0.1 10^3/uL (0.0-0.1); Basophils % 0.9 %; Eosinophils # 0.3 10^3/uL (0.0-0.8); Eosinophils % 2.5 %; Hematocrit 46.6 % (37-53); Lymphocytes % 38.5 %; Mean Corpuscular HGB Conc 34.1 g/dL (30-55); Mean Corpuscular Hemoglobin 29.5 pg (27-33); Mean Corpuscular Volume 86.5 fl (82-101); Mean Platelet Volume 10.1 fL (7.4-10.4); Monocytes # 0.6 10^3/uL (0.2-0.9); Monocytes % 5.3 %; Neutrophils # 5.38 10^3/uL (1.8-7.7); Neutrophils % 51.6 %; Nucleated Red Blood Cells % 0 %; Platelet Count 261 10^3/cmm (157-399); Red Blood Count 5.39 10^6/uL (3.85-5.65); Red Cell Distribution Width 13.1 % (12.1-15.1)
[2023-10-28 18:26] LABS: Alanine Aminotransferase 55 U/L (0-41); Albumin Level 3.9 g/dL (3.5-5.2); Alkaline Phosphatase 97 U/L (40-130); Anion Gap 15.9 (5-19); Aspartate Amino Transferase 29 U/L (0-40); Blood Urea Nitrogen 17 mg/dL (6-20); Calcium 9.2 mg/dL (8.5-10.5); Carbon Dioxide 24 mmol/L (22-29); Chloride 94 mmol/L (98-107); Globulin 3.3 g/dL (1.3-4.6); Glomerular Filtration Rate 98.9 mL/min (90-130); Osmolality Calculated 292 mOsm/kg (285-295); Potassium 4.9 mmol/L (3.5-5.1); Sodium 129 mmol/L (136-145); Total Bilirubin 0.4 mg/dL (0.15-1.2); Total Protein 7.2 g/dL (6.6-8.7)
[2023-10-28 18:28] LABS: Glucose 505 mg/dL (65-115); Ketone (Acetest) Serum Negative (Negative)
--- NOTE | 2023-10-28 19:44 | W.ED.RECABL ---
HPI - Recheck/Abnormal Lab/Rx General: Chief Complaint: Recheck/Abnormal Lab/Rx Stated Complaint: roddy sent over, blood sugar at 1530 was 600 Time Seen by Provider: 10/28/23 19:22 History of Present Illness: 58-year-old male patient called by his doctor this afternoon after routine screening visit in the clinic. It seems that his sugar was quite high, and he was told to come to the emergency department. He is not having any symptoms. No polyuria. No polydipsia. No mental status changes. No nausea or vomiting. He has no history of diabetes prior. He has never been on medication for blood sugar. Review of Systems Const: Denies: fever(s), chills or body aches Eyes: Denies: change in vision Card: Denies: chest pain or palpitations Resp: Denies: dyspnea, productive cough, non-productive cough or wheezing GI: Denies: abdominal pain, nausea, vomiting, diarrhea or hematochezia Skin/Breast: Denies: rash Neuro: Denies: headache(s), weakness in extremities, dizziness or confusion [facility] PFSH: Medical History Tubular adenoma of colon with low grade dysplasia on colonoscopy - 01/19/2018 Tobacco abuse Hyperlipidemia Atherosclerosis of coronary artery Essential hypertension Surgical History Presence of stent in LAD coronary artery Social History Smoking and tobacco/nicotine status: current every day tobacco/nicotine user cigarettes [ Other cigarette details: 0.5-1 ppd] Physical Exam Const: COMMON NORMALS: no acute distress GENERAL APPEARANCE: cooperative; not ill appearing and not frail appearing HENMT: COMMON NORMALS: normocephalic, atraumatic and Normal external nose present HEAD & SCALP: normocephalic and atraumatic FACE & SINUS: normal facial exam and face symmetric NOSE: Normal external nose present Eye: COMMON NORMALS: Equal, round and reactive pupils present and EOMs intact bilaterally PUPIL: Yes Equal, round and reactive pupils present Neck/C-Spine: GENERAL: Yes trachea midline Chest: CHEST: Yes Symmetrical chest wall rise Resp: COMMON NORMALS: normal respiratory effort, No retractions, No use of accessory muscles and clear to auscultation bilaterally AUSCULTATION: clear to auscultation bilaterally Cardio: COMMON NORMALS: regular rate and regular rhythm RATE: regular rate RHYTHM: regular rhythm GI: COMMON NORMALS: Normal to inspection, nondistended, normoactive bowel sounds present Extremity: COMMON NORMALS: no pedal edema Neuro: NICKY COMA SCALE: document GCS findings Nicky coma scale eye opening: Spontaneous [place] coma scale verbal response: Orientated [place] coma scale motor response: Obey commands Nicky coma scale total score: 15 SENSORY EXAM: Yes extremities (intact) Psych: COMMON NORMALS: speech normal SPEECH: Yes normal speech Skin: COMMON NORMALS: no rashes or lesions noted GENERAL SKIN EXAM: no rashes or lesions noted Course Vital Signs: Vital signs: Vital Signs Temperature 97.4 F L 10/28/23 16:36 Pulse Rate 80 10/28/23 20:22 Respiratory Rate 18 10/28/23 20:22 Blood Pressure 118/78 10/28/23 20:22 Pulse Oximetry 93 10/28/23 20:22 Oxygen Delivery Me thod Room Air 10/28/23 16:36 MDM - Recheck/Abnormal Lab/Rx Medical Decision Making 58-year-old male with a history of coronary disease but no history of diabetes. He presents with a blood sugar of 500. He has pseudohyponatremia that is mild, with normal electrolytes otherwise. His serum ketones are negative. He is not acidotic. There is a new diagnosis of diabetes for him. He will be discharged on metformin, glipizide, and a sliding scale insulin. He was told that he may not need the sliding scale insulin for long. We will give him regular insulin for this. Sliding scale is explained to him. Glucometer orders have been written as well. He will follow-up as an outpatient. Lab Data 10/28/23 17:55 10/28/23 17:55 Laboratory Results WBC 10.40 10^3/uL (3.29-11.43) 10/28/23 17:55 RBC 5.39 10^6/uL (3.85-5.65) 10/28/23 17:55 Hgb 15.90 g/dL (11.27-16.99) 10/28/23 17:55 Hct 46.6 % (37-53) 10/28/23 17:55 MCV 86.5 fl (82-101) 10/28/23 17:55 MCH 29.5 pg (27-33) 10/28/23 17:55 MCHC 34.1 g/dL (30-55) 10/28/23 17:55 RDW 13.1 % (12.1-15.1) 10/28/23 17:55 Plt Count 261 10^3/cmm (157-399) 10/28/23 17:55 MPV 10.1 fL (7.4-10.4) 10/28/23 17:55 Neut % (Auto) 51.6 % 10/28/23 17:55 Lymph % (Auto) 38.5 % 10/28/23 17:55 Bartholomew % (Auto) 5.3 % 10/28/23 17:55 Eos % (Auto) 2.5 % 10/28/23 17:55 Baso % (Auto) 0.9 % 10/28/23 17:55 Neut # (Auto) 5.38 10^3/uL (1.8-7.7) 10/28/23 17:55 Lymph # (Auto) 4.0 10^3/uL (0.8-4.8) 10/28/23 17:55 Bartholomew # (Auto) 0.6 10^3/uL (0.2-0.9) 10/28/23 17:55 Eos # (Auto) 0.3 10^3/uL (0.0-0.8) 10/28/23 17:55 Baso # (Auto) 0.1 10^3/uL (0.0-0.1) 10/28/23 17:55 Nucleated RBC % (auto) 0 % 10/28/23 17:55 Nucleated RBCs # 0.0 /100WBC 10/28/23 17:55 Specimen Type Arterial 10/28/23 16:46 Sample Site Brachial, right 10/28/23 16:46 ABG pH 7.40 (7.35-7.45) 10/28/23 16:46 ABG pCO2 40.4 mmHg (35-45) 10/28/23 16:46 ABG pO2 72.3 mmHg (80.0-100.0) L 10/28/23 16:46 ABG PO2/FiO2 Ratio 0 10/28/23 16:46 ABG HCO3 24.8 mmol/L (22-26) 10/28/23 16:46 ABG O2 Saturation 95.7 10/28/23 16:46 ABG Base Excess -0.1 mmol/L (-2.0-2.0) 10/28/23 16:46 Charles Test N/a 10/28/23 16:46 A-a O2 Gradient 3.4 mmHg (5-10) L 10/28/23 16:46 Hematocrit 48.0 % (42-52) 10/28/23 16:46 Hgb O2 Saturation 89.8 % (95-100) L 10/28/23 16:46 Carboxyhemoglobin 5.4 %THgb (0.4-20.1) 10/28/23 16:46 Methemoglobin 0.7 % (0.4-1.5) 10/28/23 16:46 Total Hemoglobin 15.7 g/dL (14-18) 10/28/23 16:46 Sodium 129.0 mmol/L (131-143) L 10/28/23 16:46 Potassium 4.3 mmol/L (3.5-5.0) 10/28/23 16:46 Glucose 476.0 mg/dL (70-115) H 10/28/23 16:46 Ionized Calcium 1.2 mmol/L (1.1-1.4) 10/28/23 16:46 O2 Delivery Device Room air 10/28/23 16:46 FiO2 21.0 % 10/28/23 16:46 3Rd Grade Reading Teacher ID Amh 10/28/23 16:46 Sodium 129 mmol/L (136-145) L 10/28/23 17:55 Potassium 4.9 mmol/L (3.5-5.1) 10/28/23 17:55 Chloride 94 mmol/L (98-107) L 10/28/23 17:55 Carbon Dioxide 24 mmol/L (22-29) 10/28/23 17:55 Anion Gap 15.9 (5-19) 10/28/23 17:55 BUN 17 mg/dL (6-20) 10/28/23 17:55 Creatinine 0.8 mg/dL (0.7-1.2) 10/28/23 17:55 GFR Calculation 98.9 mL/min (90-130) 10/28/23 17:55 Glucose 505 mg/dL (65-115) H* 10/28/23 17:55 POC Glucose 573 mg/dL (70-110) H* 10/28/23 16:35 Calculated Osmolality 292 mOsm/kg (285-295) 10/28/23 17:55 Calcium 9.2 mg/dL (8.5-10.5) 10/28/23 17:55 Total Bilirubin 0.4 mg/dL (0.15-1.2) 10/28/23 17:55 AST 29 U/L (0-40) 10/28/23 17:55 ALT 55 U/L (0-41) H 10/28/23 17:55 Alkaline Phosphatase 97 U/L (40-130) 10/28/23 17:55 Total Protein 7.2 g/dL (6.6-8.7) 10/28/23 17:55 Albumin 3.9 g/dL (3.5-5.2) 10/28/23 17:55 Globulin 3.3 g/dL (1.3-4.6) 10/28/23 17:55 Serum Ketones Negative (Negative) 10/28/23 17:55 No radiology studies performed this visit Discharge Plan Discharge Patient Disposition: Home Clinical Impression: Type 2 diabetes mellitus Condition: Stable Prescriptions: New metformin 500 mg tablet 500 mg PO BID Qty: 60 0RF glipizide 10 mg tablet 10 mg PO DAILY Qty: 30 0RF insulin lispro 200 unit/mL (3 mL) insulin pen See Rx Instructions .ROUTE .COMPLEX Qty: 6 0RF Rx Instructions: Take according to sliding scale 3 times daily 30 min before meals, and before bedtime. (DME) Accu-Chek Guide Glucose Meter Misc See Rx Instructions .Route Qty: 1 0RF Rx Instructions: As directed (DME) Accu-Chek Guide test strips Strip See Rx Instructions .Route Qty: 100 0RF Rx Instructions: As directed (DME) Accu-Chek Fastclix Lancet Drum Misc See Rx Instructions .Route Qty: 100 0RF Rx Instructions: As directed No Action aspirin [Adult Low Dose Aspirin] 81 mg tablet,delayed release (DR/EC) 81 mg PO DAILY amlodipine 5 mg tablet 5 mg PO DAILY Qty: 30 6RF clopidogrel 75 mg tablet 75 mg PO DAILY Qty: 90 4RF lisinopril 20 mg tablet See Rx Instructions .ROUTE .COMPLEX Qty: 180 2RF Dose Instruction: Take 2 tablets by mouth once daily Rx Instructions: Take 2 tablets by mouth once daily potassium chloride 20 mEq tablet extended release 10 meq PO DAILY Qty: 45 2RF atorvastatin 80 mg tablet See Rx Instructions .ROUTE .COMPLEX Qty: 90 3RF Dose Instruction: TAKE 1 TABLET BY MOUTH ONCE DAILY AT NIGHT Rx Instructions: TAKE 1 TABLET BY MOUTH ONCE DAILY AT NIGHT furosemide [Lasix] 20 mg tablet 20 mg PO QAM Qty: 90 2RF metoprolol succinate 50 mg tablet extended release 24 hr See Rx Instructions .ROUTE .COMPLEX Qty: 90 0RF Dose Instruction: Take 1 tablet by mouth once daily Rx Instructions: Take 1 tablet by mouth once daily Discharge Orders: Discharge ED (Routine); Ordered 10/28/23 Ordered By: Kirt Singletary Referrals: Marcel Fuentes MD [Primary Care Provider] - 1-3 days Patient Instructions: Type 2 Diabetes Management for Adults (ED), Opioid Safety, Pain Management Activity Restrictions/Additional Instructions: Fill your prescriptions tomorrow. Check your blood sugar 30 minutes prior to meals and before bedtime. He had been issued a sliding scale for insulin usage. Use the insulin pen you are prescribed to give yourself insulin according to the sliding scale depending on what your blood sugar is during these checks. Oral medications as directed. Call your doctor on Tuesday to follow-up. Keep a log of how much insulin you are using daily. Return for vomiting, mental status changes, inability to lower your blood sugar, other concerning symptoms. Coding Level of Care Code ED Sales Systems Engineer for Kristyn Guillen
[2023-10-28 20:22] VITALS: BP 118/78; PULSE 80; RESP 18; O2SAT 93
--- NOTE | 2023-10-28 21:12 | PC.NURSE ---
Patient did not receive sliding scale insulin protocol sheet. Nursing staff spoke with patient on the phone and patient stated that he would be back in the morning to retrieve paper.
[2023-10-28 23:33] LABS: Estmated Average Glucose 352; Hemoglobin A1C 13.9 % (4.0-6.0)
== END 2023-10-28 20:24 | disposition home or self-care (01) ==
PROVIDERS: Physician Assistant; Emergency Provider Emergency Medicine; PCP Family Medicine
DX: E11.9 Type 2 diabetes mellitus without complications (principal); Z79.02 Long term (current) use of antithrombotics/antiplatelets; Z79.82 Long term (current) use of aspirin; E78.5 Hyperlipidemia, unspecified; I25.10 Atherosclerotic heart disease of native coronary artery without angina pectoris; I10 Essential (primary) hypertension; F17.210 Nicotine dependence, cigarettes, uncomplicated
CPT/HCPCS: 36415; 36416; 36600; 80051; 80053; 82009; 82330; 82607; 82805; 82962; 83036; 85025; 99284

== ENCOUNTER → 2024-02-13 08:53 | Outpatient (BNVA) | payer MEDICAID, SELFPAY | PROVIDERS: PCP Family Medicine; Visit Provider Family Medicine | DX: Z51.81 Encounter for therapeutic drug level monitoring (principal); Z13.220 Encounter for screening for lipoid disorders; E11.9 Type 2 diabetes mellitus without complications | CPT/HCPCS: 80053; 80061; 83036; 85025 ==

== ENCOUNTER → 2024-04-18 11:00 | Outpatient (BNVA) | payer MEDICAID, SELFPAY | PROVIDERS: PCP Family Medicine; Visit Provider Nurse Practitioner Family | DX: I10 Essential (primary) hypertension (principal); I25.10 Atherosclerotic heart disease of native coronary artery without angina pectoris; Z72.0 Tobacco use | CPT/HCPCS: 99214 ==

== ENCOUNTER → 2024-06-14 12:55 | Outpatient (BNVA) | payer MEDICAID, SELFPAY | PROVIDERS: PCP Family Medicine; Visit Provider Family Medicine | DX: Z13.220 Encounter for screening for lipoid disorders (principal); Z51.81 Encounter for therapeutic drug level monitoring; E11.9 Type 2 diabetes mellitus without complications | CPT/HCPCS: 80053; 80061; 83036; 85025 ==

== ENCOUNTER → 2024-12-13 12:12 | Outpatient (BNVA) | payer MEDICAID, SELFPAY | PROVIDERS: PCP Family Medicine; Visit Provider Family Medicine | DX: Z51.81 Encounter for therapeutic drug level monitoring (principal); Z00.00 Encounter for general adult medical examination without abnormal findings; E11.9 Type 2 diabetes mellitus without complications; R35.0 Frequency of micturition | CPT/HCPCS: 80053; 80061; 83036; 84153; 85025 ==

== ENCOUNTER 2025-04-14 02:02 | Emergency (ER) | payer MEDICAID, SELFPAY ==
[2025-04-14 02:22] VITALS: BP 108/66; PULSE 93; RESP 20; TEMP 36.8; O2SAT 94
[2025-04-14 03:01] LABS: Basophils # 0.1 10^3/uL (0.0-0.1); Basophils % 0.7 %; Eosinophils # 0.2 10^3/uL (0.0-0.8); Eosinophils % 1.8 %; Hematocrit 50.2 % (37-53); Lymphocytes # 2.2 10^3/uL (0.8-4.8); Lymphocytes % 20.1 %; Mean Corpuscular HGB Conc 33.1 g/dL (30-55); Mean Corpuscular Hemoglobin 28.5 pg (27-33); Mean Corpuscular Volume 86.3 fl (82-101); Mean Platelet Volume 9.6 fL (7.4-10.4); Monocytes # 1.6 10^3/uL (0.2-0.9); Monocytes % 14.5 %; Neutrophils # 6.93 10^3/uL (1.8-7.7); Neutrophils % 62.6 %; Nucleated Red Blood Cells % 0 %; Platelet Count 197 10^3/cmm (157-399); Red Blood Count 5.82 10^6/uL (3.85-5.65); Red Cell Distribution Width 15.4 % (12.1-15.1); White Blood Count 11.07 10^3/uL (3.29-11.43)
--- NOTE | 2025-04-14 03:01 | CTR_ITS ---
PROCEDURE INFORMATION: Exam: CT Abdomen And Pelvis With Contrast Exam date and time: 04/14/2025 3:15 AM Age: 60 years old Clinical indication: Abdominal pain; Generalized; Prior surgery; Surgery date: 6+ months; Surgery type: Gb; Diffuse abd pain with diarrhea x 3 days. ; Additional info: Abd pain diarrhea TECHNIQUE: Imaging protocol: Computed tomography of the abdomen and pelvis with contrast. Radiation optimization: All CT scans at this facility use at least one of these dose optimization techniques: automated exposure control; mA and/or kV adjustment per patient size (includes targeted exams where dose is matched to clinical indication); or iterative reconstruction. Contrast material: OMNI 350; Contrast volume: 100 ml; Contrast route: INTRAVENOUS (IV); COMPARISON: CR XR chest 1V portable [id number] 06/23/2021 6:39 AM RADIATION DOSE METRICS: Total DLP (mGy-cm): 1115.25 FINDINGS: Liver: Normal. No mass. Gallbladder and biliary ducts: Cholecystectomy. No calcified stones. No ductal dilation. Pancreas: Normal. No ductal dilation. Spleen: Normal. No splenomegaly. Adrenal glands: Normal. No mass. Kidneys and ureters: Normal. No hydronephrosis. Stomach and bowel: Diverticulosis of the colon with thickening and induration of the descending and rectosigmoid colon. Appendix: No evidence of appendicitis. Intraperitoneal space: Unremarkable. No free air. No significant fluid collection. Vasculature: Unremarkable. No abdominal aortic aneurysm. Lymph nodes: Unremarkable. No enlarged lymph nodes. Urinary bladder: Unremarkable as visualized. Reproductive: Unremarkable as visualized. Bones/joints: Degenerative disc osteophyte complexes L3-L4-5-S1. No acute fracture. Soft tissues: Unremarkable. CT/CT abdomen pelvis w con* [id number] IMPRESSION: Long segment enhancement and induration of the colon most compatible with colitis.
[2025-04-14] MEDS: ondansetron 2 mg/ML SDV 2 mL 8 MG IVP (03:12)
[2025-04-14] MEDS: ketorolac 30 mg/mL INJ IVP (03:13)
[2025-04-14] MEDS: sodium chloride 0.9% 1,000 ML 999 ML IV ×2 (03:13→04:15)
[2025-04-14 03:17] LABS: Alanine Aminotransferase 20 U/L (0-41); Albumin Level 3.4 g/dL (3.5-5.2); Alkaline Phosphatase 52 U/L (40-130); Anion Gap 18.3 (5-19); Aspartate Amino Transferase 24 U/L (0-40); Blood Urea Nitrogen 18 mg/dL (8-23); Calcium 8.7 mg/dL (8.5-10.5); Carbon Dioxide 21 mmol/L (22-29); Chloride 99 mmol/L (98-107); Glomerular Filtration Rate 61.6 mL/min (90-130); Glucose 137 mg/dL (65-115); Lipase 24 U/L (13-60); Osmolality Calculated 282 mOsm/kg (285-295); Potassium 4.3 mmol/L (3.5-5.1); Sodium 134 mmol/L (136-145); Total Bilirubin 0.3 mg/dL (0.15-1.2); Total Protein 6.4 g/dL (6.6-8.7)
[2025-04-14] MEDS: iohexol 350 mg/mL 500 mL Btl (per mL) IV (03:17)
[2025-04-14 03:18] LABS: Lactic Sepsis W/Reflex 1.8 mmol/L (0.5-2.2)
--- NOTE | 2025-04-14 03:40 | W.ED.NAVMDI ---
HPI - Nausea/Vomiting/Diarrhea General: Chief complaint: Nausea/Vomiting/Diarrhea Stated complaint: D. can't eat stomach hurts Time Seen by Provider: 04/14/25 02:54 History of Present Illness: 60-year-old male patient with 3 days of generalized abdominal pain, diarrhea. Diarrhea is described as liquidy stool. No blood. No vomiting. He has been nauseated. No fever. No recent antibiotic usage. No other sick contacts. His only belly surgery was a cholecystectomy years ago. Related Data Home Medications ?Medication ?Instructions ?Recorded ?Confirmed aspirin 81 mg tablet,delayed 81 mg PO DAILY 07/20/22 12/13/24 release (Adult Low Dose Aspirin) Previous Rx's ?Medication ?Instructions ?Recorded blood sugar diagnostic (Accu-Chek #100 ea 10/28/23 Guide test strips) blood-glucose meter (Accu-Chek #1 ea 10/28/23 Guide Glucose Meter) insulin lispro 200 unit/mL (3 mL) See Rx Instructions .Route 10/28/23 subcutaneous pen .COMPLEX #6 mL lancets (Accu-Chek Fastclix Lancet #100 ea 10/28/23 Drum) atorvastatin 80 mg tablet See Rx Instructions .Route 04/11/24 .COMPLEX #90 tabs metformin 500 mg tablet 500 mg PO BID #60 tabs 06/18/24 lisinopril 20 mg tablet See Rx Instructions .Route 08/16/24 .COMPLEX #180 tabs furosemide 20 mg tablet (Lasix) 20 mg PO QAM #90 tabs 08/28/24 amlodipine 5 mg tablet 5 mg PO DAILY #30 tabs 10/29/24 potassium chloride 10 mEq 10 meq PO DAILY #90 tabs 11/05/24 tablet,extended release triamcinolone acetonide 0.1 % 1 applic topical DAILY #30 grams 12/13/24 topical cream clopidogrel 75 mg tablet 75 mg PO DAILY #90 tabs 12/24/24 semaglutide 0.25 mg or 0.5 mg (2 0.25 mg (0.368 mL) SUBCUT Q7D #3 mL 12/27/24 mg/3 mL) subcutaneous pen injector (Ozempic) metoprolol succinate 50 mg See Rx Instructions .Route 02/28/25 tablet,extended release 24 hr .COMPLEX #90 tabs glipizide 5 mg tablet 5 mg PO DAILY #60 tabs 03/19/25 ciprofloxacin HCl 500 mg tablet 500 mg PO BID #14 tabs 04/14/25 hydrocodone 5 mg-acetaminophen 325 1 tab PO Q8H PRN pain #7 tabs 04/14/25 mg tablet metronidazole 500 mg tablet 500 mg PO Q8H 7 days #21 tabs 04/14/25 ondansetron 4 mg disintegrating 4 mg PO Q6H PRN nausea and 04/14/25 tablet vomiting #14 tabs Allergies Allergy/AdvReac Type Severity Reaction Status Date / Time No Known Allergies Allergy Verified 10/16/24 12:45 [facility] ED PFS: Medical History CAD (coronary artery disease) Tubular adenoma of colon with low grade dysplasia on colonoscopy - 01/19/2018 Tobacco abuse Hyperlipidemia Atherosclerosis of coronary artery Essential hypertension Surgical History Presence of stent in LAD coronary artery Social History Smoking and tobacco/nicotine status: current every day tobacco/nicotine user cigarettes Packs smoked per day: 1 [ Other cigarette details: 0.5-1 ppd] Physical Exam Const: COMMON NORMALS: no acute distress GENERAL APPEARANCE: cooperative; not frail appearing HENMT: COMMON NORMALS: normocephalic, atraumatic and Normal external nose present HEAD & SCALP: normocephalic and atraumatic FACE & SINUS: normal facial exam and face symmetric NOSE: Normal external nose present Eye: COMMON NORMALS: Equal, round and reactive pupils present and EOMs intact bilaterally PUPIL: Yes Equal, round and reactive pupils present Neck/C-Spine: GENERAL: Yes trachea midline Chest: CHEST: Yes Symmetrical chest wall rise Resp: COMMON NORMALS: normal respiratory effort, No retractions, No use of accessory muscles and clear to auscultation bilaterally AUSCULTATION: clear to auscultation bilaterally Cardio: COMMON NORMALS: regular rate and regular rhythm RATE: regular rate RHYTHM: regular rhythm GI: COMMON NORMALS: Soft to palpation INSPECTION: Yes abdominal distension PALPATION: Yes Soft to palpation, Yes Tenderness to palpation present (GI) (Generalized) and Yes Guarding due to palpation present (GI) Extremity: COMMON NORMALS: no pedal edema Neuro: NICKY COMA SCALE: document GCS findings [place] coma scale eye opening: Spontaneous [place] coma scale verbal response: Orientated Nicky coma scale motor response: Obey commands Nicky coma scale total score: 15 SENSORY EXAM: Yes extremities (intact) Psych: COMMON NORMALS: speech normal SPEECH: Yes normal speech Skin: COMMON NORMALS: no rashes or lesions noted GENERAL SKIN EXAM: no rashes or lesions noted Course Vital Signs: Vital signs: Vital Signs Temperature 98.2 F 04/14/25 02:22 Pulse Rate 71 04/14/25 05:40 Respiratory Rate 17 04/14/25 05:40 Blood Pressure 102/55 04/14/25 05:40 Pulse Oximetry 93 04/14/25 05:40 Oxygen Delivery Me thod Room Air 04/14/25 05:30 MDM - Nausea/Vomiting/Diarrhea Medical Decision Making White blood cell count is 11. CRP is elevated at 96. Lipase is normal. Liver enzymes are normal. Lactic acid is 1.8. Other laboratory not remarkable. CT and urine are pending. Blood pressures have been mildly soft, he is given a 2 L bolus. Following bolus and pain medication, patient is feeling improved. CT shows long segment colitis. He'll be treated with ciprofloxacin and metronidazole. First dose is given here. Home. Pain and nausea medication. Antibiotics. Return for any worsening symptoms despite treatment. Outpatient follow up with his PCP. Lab Data 04/14/25 02:53 04/14/25 02:53 Radiology Impressions Abdomen/Pelvis CT 04/14/25 03:01 IMPRESSION: Long segment enhancement and induration of the colon most compatible with colitis. Laboratory Results WBC 11.07 10^3/uL (3.29-11.43) 04/14/25 02:53 RBC 5.82 10^6/uL (3.85-5.65) H 04/14/25 02:53 Hgb 16.60 g/dL (11.27-16.99) 04/14/25 02:53 Hct 50.2 % (37-53) 04/14/25 02:53 MCV 86.3 fl (82-101) 04/14/25 02:53 MCH 28.5 pg (27-33) 04/14/25 02:53 MCHC 33.1 g/dL (30-55) 04/14/25 02:53 RDW 15.4 % (12.1-15.1) H 04/14/25 02:53 Plt Count 197 10^3/cmm (157-399) 04/14/25 02:53 MPV 9.6 fL (7.4-10.4) 04/14/25 02:53 Neut % (Auto) 62.6 % 04/14/25 02:53 Lymph % (Auto) 20.1 % 04/14/25 02:53 Jewell % (Auto) 14.5 % 04/14/25 02:53 Eos % (Auto) 1.8 % 04/14/25 02:53 Baso % (Auto) 0.7 % 04/14/25 02:53 Neut # (Auto) 6.93 10^3/uL (1.8-7.7) 04/14/25 02:53 Lymph # (Auto) 2.2 10^3/uL (0.8-4.8) 04/14/25 02:53 Jewell # (Auto) 1.6 10^3/uL (0.2-0.9) H 04/14/25 02:53 Eos # (Auto) 0.2 10^3/uL (0.0-0.8) 04/14/25 02:53 Baso # (Auto) 0.1 10^3/uL (0.0-0.1) 04/14/25 02:53 Nucleated RBC % (auto) 0 % 04/14/25 02:53 Nucleated RBCs # 0.0 /100WBC 04/14/25 02:53 Sodium 134 mmol/L (136-145) L 04/14/25 02:53 Potassium 4.3 mmol/L (3.5-5.1) 04/14/25 02:53 Chloride 99 mmol/L (98-107) 04/14/25 02:53 Carbon Dioxide 21 mmol/L (22-29) L 04/14/25 02:53 Anion Gap 18.3 (5-19) 04/14/25 02:53 BUN 18 mg/dL (8-23) 04/14/25 02:53 Creatinine 1.2 mg/dL (0.7-1.2) 04/14/25 02:53 GFR Calculation 61.6 mL/min (90-130) L 04/14/25 02:53 Glucose 137 mg/dL (65-115) H 04/14/25 02:53 Calculated Osmolality 282 mOsm/kg (285-295) L 04/14/25 02:53 Lactic Acid 1.8 mmol/L (0.5-2.2) 04/14/25 02:53 Calcium 8.7 mg/dL (8.5-10.5) 04/14/25 02:53 Total Bilirubin 0.3 mg/dL (0.15-1.2) 04/14/25 02:53 AST 24 U/L (0-40) 04/14/25 02:53 ALT 20 U/L (0-41) 04/14/25 02:53 Alkaline Phosphatase 52 U/L (40-130) 04/14/25 02:53 C-Reactive Protein 96.0 mg/L (0.0-4.9) H 04/14/25 02:53 Total Protein 6.4 g/dL (6.6-8.7) L 04/14/25 02:53 Albumin 3.4 g/dL (3.5-5.2) L 04/14/25 02:53 Globulin 3.0 g/dL (1.3-4.6) 04/14/25 02:53 Lipase 24 U/L (13-60) 04/14/25 02:53 All radiology interpretation(s) finalized by discharge Discharge Plan Discharge Patient Disposition: Home Clinical Impression: Colitis, Dehydration Condition: Stable Prescriptions: New metronidazole 500 mg tablet 500 mg PO Q8H 7 Days Qty: 21 0RF hydrocodone-acetaminophen 5-325 mg tablet 1 tab PO Q8H PRN (Reason: pain) Qty: 7 0RF ciprofloxacin HCl 500 mg tablet 500 mg PO BID Qty: 14 0RF ondansetron 4 mg tablet,disintegrating 4 mg PO Q6H PRN (Reason: nausea and vomiting) Qty: 14 0RF No Action aspirin [Adult Low Dose Aspirin] 81 mg tablet,delayed release (DR/EC) 81 mg PO DAILY triamcinolone acetonide 0.1 % cream 1 applic topical DAILY Qty: 30 6RF atorvastatin 80 mg tablet See Rx Instructions .ROUTE .COMPLEX Qty: 90 3RF Dose Instruction: TAKE 1 TABLET BY MOUTH ONCE DAILY AT NIGHT Rx Instructions: TAKE 1 TABLET BY MOUTH ONCE DAILY AT NIGHT metformin 500 mg tablet 500 mg PO BID Qty: 60 6RF lisinopril 20 mg tablet See Rx Instructions .ROUTE .COMPLEX Qty: 180 2RF Dose Instruction: Take 2 tablets by mouth once daily Rx Instructions: Take 2 tablets by mouth once daily furosemide [Lasix] 20 mg tablet 20 mg PO QAM Qty: 90 2RF amlodipine 5 mg tablet 5 mg PO DAILY Qty: 30 6RF potassium chloride 10 mEq tablet extended release 10 meq PO DAILY Qty: 90 3RF clopidogrel 75 mg tablet 75 mg PO DAILY Qty: 90 3RF Ozempic 0.25 mg or 0.5 mg (2 mg/3 mL) pen injector 0.25 mg SUBCUT Q7D Qty: 3 3RF Rx Instructions: Inject 0.25mg SQ Q7day for 4 weeks then increase to 0.5mg Q7days metoprolol succinate 50 mg tablet extended release 24 hr See Rx Instructions .ROUTE .COMPLEX Qty: 90 3RF Dose Instruction: Take 1 tablet by mouth once daily Rx Instructions: Take 1 tablet by mouth once daily glipizide 5 mg tablet 5 mg PO DAILY Qty: 60 6RF insulin lispro 200 unit/mL (3 mL) insulin pen See Rx Instructions .ROUTE .COMPLEX Qty: 6 0RF Rx Instructions: Take according to sliding scale 3 times daily 30 min before meals, and before bedtime. (DME) Accu-Chek Guide Glucose Meter Misc See Rx Instructions .Route Qty: 1 0RF Rx Instructions: As directed (DME) Accu-Chek Guide test strips Strip See Rx Instructions .Route Qty: 100 0RF Rx Instructions: As directed (DME) Accu-Chek Fastclix Lancet Drum Misc See Rx Instructions .Route Qty: 100 0RF Rx Instructions: As directed Discharge Orders: Discharge ED (Routine); Ordered 04/14/25 Ordered By: Kirt Singletary Referrals: Marcel Fuentes MD [Primary Care Provider, Family Practice] - 1-3 days Patient Instructions: Dehydration (ED), Colitis (ED), Opioid Safety, Pain Management Activity Restrictions/Additional Instructions: Drink plenty of clear liquids to stay hydrated. Antibiotics as directed. Use pain and nausea medication as needed. Return for fever greater than 100 ?F despite 2-3 more doses of antibiotics, worsening pain despite treatment, vomiting liquids or medications, significant bleeding in the stool, other concerning symptoms. Call your doctor tomorrow morning for follow-up appointment this coming week. Print Language: Mauritanian Coding Level of Care Code ED Insurance Professional for Kristyn Guillen
[2025-04-14] MEDS: ciprofloxacin 500 mg Tablet PO (04:33)
[2025-04-14] MEDS: metroNIDAZOLE 500 MG Tablet PO (04:33)
[2025-04-14 05:30] VITALS: BP 102/55; PULSE 71; RESP 17; O2SAT 93
[2025-04-14 05:40] VITALS: BP 102/55; PULSE 71; RESP 17; O2SAT 93
== END 2025-04-14 05:41 | disposition home or self-care (01) ==
PROVIDERS: Emergency Provider Emergency Medicine; PCP Family Medicine
DX: K52.9 Noninfective gastroenteritis and colitis, unspecified (principal); E86.0 Dehydration; Z79.84 Long term (current) use of oral hypoglycemic drugs; Z79.01 Long term (current) use of anticoagulants; Z79.4 Long term (current) use of insulin; F17.210 Nicotine dependence, cigarettes, uncomplicated; I25.10 Atherosclerotic heart disease of native coronary artery without angina pectoris; E78.5 Hyperlipidemia, unspecified; I10 Essential (primary) hypertension
CPT/HCPCS: 74177; 80053; 83605; 83690; 85025; 86140; 96361; 96374; 96375; 99285; J1885; J2405; J7030; J9999

== ENCOUNTER → 2025-06-20 10:51 | Outpatient (BNVA) | payer MEDICAID, SELFPAY | PROVIDERS: PCP Family Medicine; Visit Provider Family Medicine | DX: E53.8 Deficiency of other specified B group vitamins (principal); E11.9 Type 2 diabetes mellitus without complications; Z51.81 Encounter for therapeutic drug level monitoring | CPT/HCPCS: 80053; 82607; 83036; 85025 ==

== ENCOUNTER 2025-09-05 12:31 | Outpatient (CLI) | payer MEDICAID, SELFPAY ==
--- NOTE | 2025-09-05 12:36 | US_ITS ---
WS: [id number] ULTRASOUND SOFT TISSUES anterior neck. HISTORY: SUBCUTANEOUS MASS COMPARISON: None available. TECHNIQUE: 2-D and color Doppler imaging is submitted. There is a large solid mass along the midline of the anterior neck. No cystic components. This mass is displacing the adjacent soft tissues. There are a few vessels noted within this mass. Mass measures at least 6.9 x 3.1 cm and over a length of 5.8 cm. US/US soft tissue head neck 40139 IMPRESSION: 1. Large solid mass along the anterior neck. This corresponds to the palpable abnormality. 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 Due to its very large size consider add itional evaluation. CT neck with IV contrast may be helpful. This mass may be c ompressing some of the adjacent structures.
== END 2025-09-05 12:32 | disposition home or self-care (01) ==
LOC: RAD 12:32
PROVIDERS: PCP Family Medicine; Visit Provider Dermatology
DX: D17.0 Benign lipomatous neoplasm of skin and subcutaneous tissue of head, face and neck (principal)
CPT/HCPCS: 76536

== ENCOUNTER 2025-10-14 16:23 | Outpatient (CLI) | payer MEDICAID, SELFPAY ==
--- NOTE | 2025-10-14 16:38 | CT_ITS ---
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 Sagittal and coronal reformats are also submitted. All CT scans at [facility] use at least one of these dose optimization techniques: automated exposure control; mA and/or kV adjustment per patient size (includes targeted exams where dose is matched to clinical indication); or iterative reconstruction. CONTRAST: CONTRAST: Omnipaque 350; 100 mL IV. DLP: 321.04 mGy.cm COMPARISON: 09/05/2025 There is a large fatty mass with a few thin septations centered in the anterior neck at the level of the cricoid cartilage. The mass extends over a length of 7.5 cm and transversely by 8.8 cm in anteroposterior by 4.5 cm. There is partial encapsulation of this fatty mass. No obvious mass effect upon the adjacent soft tissues. There is very slight bulging of the skin contour. Nasopharynx, oropharynx, hypopharynx and larynx are unremarkable. No soft tissue masses or abnormal enhancement. Torus tubarius and fossa of Rosenmuller and parapharyngeal fat are normal. Small cervical chain lymph nodes. These are benign-appearing lymph nodes. 8 mm RIGHT thyroid nodule. No osseous abnormalities. Visualized portions of the skull base demonstrate no abnormalities. Orbits and globes are within normal limits. No soft tissue masses. Visualized paranasal sinuses and mastoid air cells are normal. Marked emphysematous changes at the lung apices. Small mediastinal and hilar lymph nodes. CT/CT neck w con* [id number] IMPRESSION: 1. 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 L ipomatous mass is centered at the level of the cricoid cartilage. Mass extends over a length of 7.5 cm. No enhancing component or thick septations. 2. No cervical chain pathologic lymph nodes. 3. Centrilobular emphysema at the lung apices.
[2025-10-14 17:04] LABS: Blood Urea Nitrogen 10 mg/dL (8-23)
[2025-10-14] MEDS: iohexol 350 mg/mL 500 mL Btl (per mL) IV (17:08)
== END 2025-10-14 16:24 | disposition home or self-care (01) ==
LOC: RAD 16:24
PROVIDERS: PCP Family Medicine; Visit Provider Dermatology
DX: D17.30 Benign lipomatous neoplasm of skin and subcutaneous tissue of unspecified sites (principal); J43.2 Centrilobular emphysema
CPT/HCPCS: 70491; 82565; 84520